=== PATIENT | male | born 1985 | race Caucasian/White ===

== ENCOUNTER 2020-11-16 14:43 | Emergency (ER) | payer OTHER ==
[~2020-11-16] VITALS: Ht 177.8 cm; Wt 86.2 kg
[2020-11-16] MEDS ORDERED: IBUP800 PO (19:54)
== END 2020-11-16 20:22 | disposition home or self-care (01) ==
LOC: ER 14:43
DX: I31.9 Disease of pericardium, unspecified (principal)
CPT/HCPCS: 71046; 71260; 80053; 82550; 82553; 84484; 85025; 85379; 93005; 93010; 96374; 99285-25; A9270; J1885; Q9967